=== PATIENT | female | born 1955 | race Caucasian/White ===

== ENCOUNTER 2017-06-25 13:42 | Outpatient (CLI) | payer OTHER | END 2017-06-25 13:43 | disposition home or self-care (01) | LOC: DI 13:42 | PROVIDERS: ATTEND Family Medicine | DX: R42 Dizziness and giddiness (principal); R07.9 Chest pain, unspecified | CPT/HCPCS: 93306 ==

== ENCOUNTER 2017-07-15 13:16 | Outpatient (CLI) | payer OTHER ==
[2017-07-15 16:35] VITALS: BP 112/76
--- NOTE | 2017-07-15 16:48 | CARDIAC PROCEDURE NOTE ---
DATE OF SERVICE: 07/15/2017 Physician: APOLLO Jacinto PRIMARY CARE PROVIDER: Dr. Wali Mack. PROCEDURE: Cardiac treadmill stress test. PROCEDURE SYMPTOMS: Chest pain and lightheadedness. CARDIAC RISK FACTORS: Age and prediabetes. PREVIOUS CARDIAC PROCEDURES: None. Predicted exercise time of 5 minutes, 25 seconds to 6 minutes 40 seconds. CLINICAL HISTORY: A 61-year-old female without known coronary artery disease. INITIAL RESTING VITAL SIGNS: BP 112/68, heart rate 73, height 66 inches, weight 156 pounds. PROCEDURE AND FINDINGS: The patient identity and date verified. Consent signed. The patient performed treadmill exercise using a John protocol, completing 7 minutes 20 seconds, and completing an estimated workload of 9.10 metabolic equivalents. Maximal blood pressure was 170/64 with a heart rate of 156 beats per minute or 99% of maximum predicted heart rate for age. The blood pressure response to exercise was within normal limits. The patient stopped because she was tiring. The resting ECG demonstrated normal sinus rhythm with no ST or T-wave abnormalities. Maximum ST segment depression was less than 0.5 mm and upsloping. There was no ectopy. FINAL IMPRESSION: 1. Good quality test. 2. Negative stress electrocardiogram for ischemia by electrocardiographic criteria. 3. Negative stress test clinically for angina. 4. No ectopy nor arrhythmia. 5. [place] [employer] functional class I. TD: 07/15/2017 14:59
--- NOTE | 2017-07-19 10:44 | XRAY Report ---
CARDIOVASCULAR TREADMILL TEST: There was no imaging performed for this exam. Procedure notes and results available in the EMR. LUIS
== END 2017-07-15 13:17 | disposition home or self-care (01) ==
LOC: DI 13:16
PROVIDERS: ATTEND Family Medicine
DX: R07.9 Chest pain, unspecified (principal)
CPT/HCPCS: 93017

== ENCOUNTER 2020-02-22 16:19 | Outpatient (CLI) | payer MEDICARE, OTHER | END 2020-02-22 16:20 | disposition home or self-care (01) | LOC: COV 16:19 | PROVIDERS: ATTEND Family Medicine | DX: R50.9 Fever, unspecified (principal); Z20.822 Contact with and (suspected) exposure to COVID-19; R53.83 Other fatigue; R19.7 Diarrhea, unspecified; R09.81 Nasal congestion; R11.0 Nausea ==